=== PATIENT | male | born 1985 | race Caucasian/White ===

== ENCOUNTER 2016-08-15 17:30 | Emergency (ER) | payer SELFPAY ==
[~2016-08-15] VITALS: Wt 163.3 kg
[~2016-08-15 17:30] MED LIST: CIPROFLOXACIN500 MG PO; MOTRIN800 MG PO
[2016-08-15] MEDS ORDERED: ASPIR-TRIN325 MG PO (18:03)
[2016-08-15] MEDS ORDERED: AUGMENTIN 875875 MG PO (18:34)
== END 2016-08-15 19:26 | disposition home or self-care (01) ==
LOC: ED 17:30
DX: S61.431A Puncture wound without foreign body of right hand, initial encounter (principal); S61.432A Puncture wound without foreign body of left hand, initial encounter; Z79.82 Long term (current) use of aspirin; Z29.12 Encounter for prophylactic antivenin; W54.0XXA Bitten by dog, initial encounter; Y93.89 Activity, other specified; Y92.89 Other specified places as the place of occurrence of the external cause; Y99.9 Unspecified external cause status

== ENCOUNTER 2019-02-14 17:50 | Emergency (ER) | payer SELFPAY ==
[~2019-02-14] VITALS: Ht 190.5 cm; Wt 167.8 kg
[~2019-02-14 17:50] MED LIST changes: +ASPIR-TRIN325 MG PO; +AUGMENTIN 875875 MG PO
[2019-02-14] MEDS ORDERED: TESSALON PERLE100 M1 PO (19:40)
[2019-02-14] MEDS ORDERED: ZITHROMAX250 MG PO (19:40)
[2019-02-14] MEDS ORDERED: PREDNISONE50 MG PO (19:40)
== END 2019-02-14 19:43 | disposition home or self-care (01) ==
LOC: ED 17:50
DX: J40 Bronchitis, not specified as acute or chronic (principal); Z79.2 Long term (current) use of antibiotics; Z79.82 Long term (current) use of aspirin

== ENCOUNTER 2019-07-13 11:27 | Inpatient (IN) | payer SELFPAY ==
[~2019-07-13] VITALS: Ht 193 cm; Wt 217.9 kg
[2019-07-13] VITALS (8 sets, daily range): BP systolic 150–186; BP diastolic 82–121
[~2019-07-13 11:27] MED LIST changes: +PREDNISONE50 MG PO; +TESSALON PERLE100 M1 PO; +ZITHROMAX250 MG PO
[2019-07-13 13:07] LABS: BASO # 0.1 10*3/uL (0.0-0.1); BASO % 0.6 % (0.0-1.0); EOS # 0.1 10*3/uL (0.0-0.4); EOS % 0.9 % (1.0-4.0); HEMATOCRIT 49.4 % (42.0-52.0); LYMPH # 1.9 10*3/uL (1.3-4.4); LYMPH % 17.7 % (27.0-41.0); MEAN CELL VOLUME 82.2 fl (80.0-94.0); MEAN CORPUSCULAR HGB 26.6 pg (27.0-31.0); MEAN CORPUSCULAR HGB CONC 32.4 g/dl (33.0-37.0); MEAN PLATELET VOLUME 10.1 fl (9.6-12.3); MONO # 0.9 10*3/uL (0.1-1.0); MONO % 8.1 % (3.0-9.0); NEUT # 7.8 10*3/uL (2.3-7.9); NEUT % 72.3 % (47.0-73.0); PLATELET COUNT AUTOMATED 284 10*3/uL (130-400); RED BLOOD COUNT 6.01 10*6/uL (4.50-5.90); RED CELL DISTRI WIDTH 13.7 % (0-14.5); WHITE BLOOD COUNT 10.8 10*3/uL (4.8-10.8)
[2019-07-13 13:23] LABS: ALBUMIN 3.4 gm/dl (3.1-4.5); ALKALINE PHOSPHATASE 104 U/L (45-117); BUN 13 mg/dl (7-24); CHLORIDE 107 mmol/L (98-107); CREATININE 0.81 mg/dL (0.70-1.30); POTASSIUM 3.8 mmol/L (3.5-5.1); SGOT/AST 36 IU/L (3-35); SGPT/ALT 39 U/L (12-78); SODIUM 139 mmol/L (136-145); TOTAL PROTEIN 7.7 gm/dL (6.4-8.2)
[2019-07-13 13:26] LABS: TROPONIN I 0.113 ng/ml (<0.045)
--- NOTE | 2019-07-13 17:10 | NUR ---
A 34, admitted to , under the services of SCOTTY Garza DO with a diagnosis of HIGH BLOOD PRESSURE. Chief complaint is HIGH BLOOD PRESSURE. Patient arrived via ambulatory from ER. Monitor applied. Initial assessment completed. Vital signs taken and recorded. SCOTTY GARZA DO notified of admission to the unit. Orders received. See assessment for past medical history, medications and allergies. Patient and/or family oriented to unit. [facility] visitation policy reviewed. Clothing/patient valuable form completed. HERNANDO SALOMON
--- NOTE | 2019-07-13 19:47 | NUR ---
NOTIFIED DR. SINCLAIR PATIENTS BLOOD PRESSURE REMAINS HIGH DESPITE THE ONE TIME DOSE OF NORVASC GIVEN EARLIER. BLOOD PRESSURE STILL 180S/90S. DR. SINCLAIR TO PUT IN NEW ORDERS.
[2019-07-14] VITALS: BP 164/80; BP 180/97
[2019-07-14 06:22] LABS: BASO # 0.1 10*3/uL (0.0-0.1); BASO % 0.5 % (0.0-1.0); EOS # 0.2 10*3/uL (0.0-0.4); EOS % 1.6 % (1.0-4.0); HEMATOCRIT 46.4 % (42.0-52.0); LYMPH # 2.5 10*3/uL (1.3-4.4); LYMPH % 25.4 % (27.0-41.0); MEAN CELL VOLUME 82.4 fl (80.0-94.0); MEAN CORPUSCULAR HGB 26.5 pg (27.0-31.0); MEAN CORPUSCULAR HGB CONC 32.1 g/dl (33.0-37.0); MEAN PLATELET VOLUME 10.8 fl (9.6-12.3); MONO # 0.9 10*3/uL (0.1-1.0); MONO % 9.5 % (3.0-9.0); NEUT # 6.2 10*3/uL (2.3-7.9); NEUT % 62.8 % (47.0-73.0); PLATELET COUNT AUTOMATED 296 10*3/uL (130-400); RED BLOOD COUNT 5.63 10*6/uL (4.50-5.90); RED CELL DISTRI WIDTH 13.7 % (0-14.5); WHITE BLOOD COUNT 9.9 10*3/uL (4.8-10.8)
[2019-07-14 06:52] LABS: BUN 11 mg/dl (7-24); CHLORIDE 108 mmol/L (98-107); POTASSIUM 3.4 mmol/L (3.5-5.1); SODIUM 141 mmol/L (136-145)
[2019-07-14 07:04] LABS: CHOLESTEROL 195 mg/dL (<200); CREATININE 0.72 mg/dL (0.70-1.30); HDL CHOLESTEROL 37 mg/dl (40-60); LDL CHOLESTEROL 137 mg/dL (9-159); TRIGLYCERIDES 107 mg/dl (<150); VLDL CHOLESTEROL 21 mg/dL (6-40)
[2019-07-14 08:00] VITALS: BP 160/86
--- NOTE | 2019-07-14 08:17 | NUR ---
NOTIFIED DR KONG OF CRITICAL TROPONIN VALUE OF 0.124.
--- NOTE | 2019-07-14 09:00 | NUR ---
Aeroplane Pilot in to talk to patient. Patient states [facility] with [facility]. There are no steps in the home. Physician: porfirio narayanan Pharmacy: [facility] health services: [facility] Patient's level of ADLs: INDEPENDENT Patient has working utilities: all working DME: none Follow-up physician's appointment after d/c: will be made by hospitalist nurse director upon discharge Does patient want to access PORTAL?: no Discharge plan discussed with patient, he lives at home with his family, he is independent in adls and ambulation, works, drives, he states he will return home when medically stable, discuss with him filling out paper work to help with the cost of the hospital stay. he stated Augustina from [facility] had spoken to him this morning and given him the paperwork to fill out, patient denies any other needs at this time, case management will follow. ARUNA VILLALPANDO
--- NOTE | 2019-07-14 09:07 | NUR ---
BRENDA CALLED FROM [facility] TO CANCEL STRESS TEST D/T PT WEIGHT.
[2019-07-14 12:00] VITALS: BP 148/80
--- NOTE | 2019-07-14 12:44 | NUR ---
PT SITTING UP IN BED. RESPS EASY ON RA,SPO2 99%. VOICES NO NEEDS. DENIES CP/PRESSURE.AWITING LUNCH TO ARRIVE. STABLE AT THIS TIME. CALL LIGHT IN REACH.
[2019-07-14] MEDS ORDERED: AMLODIPINE BESYL5 MG PO (13:19)
[2019-07-14] MEDS ORDERED: ATORVASTATIN CA40 M1 PO (13:19)
[2019-07-14] MEDS ORDERED: ASPIRIN ADULT L81 M2 PO (13:19)
[2019-07-14] MEDS ORDERED: METOPROLOL SUCC50 M1 PO (13:19)
[2019-07-14] MEDS ORDERED: LISINOPRIL10 M1 PO (13:19)
[2019-07-14] MEDS ORDERED: VITAMIN D250 MC1 PO (13:25)
--- NOTE | 2019-07-14 14:25 | NUR ---
Discharge instructions reviewed with patient/family. Patient receptive and verbalizes understanding. Follow-up care arranged. Written instructions given to patient/family. ALECIA HAHN
--- NOTE | 2019-07-14 14:33 | NUR ---
Nutritional Support Services Note: Pt not available in room. Left patient a cardiac diet. Ht.6'4 Wt.480# Will follow up as needed. Sylvia Cody Rdn Ld
== END 2019-07-14 14:25 | disposition home or self-care (01) | DRG 305 ==
LOC: ED 11:27 → EDHOLD 16:15 → 4E 16:30
PROVIDERS: Nurse Practitioner Family; Student in an Organized Health Care Education/Training Program; ADMIT Internal Medicine
DX: I16.1 Hypertensive emergency (principal); E44.0 Moderate protein-calorie malnutrition; Z68.43 Body mass index [BMI] 50.0-59.9, adult; E66.01 Morbid (severe) obesity due to excess calories; E11.65 Type 2 diabetes mellitus with hyperglycemia; I10 Essential (primary) hypertension; R79.89 Other specified abnormal findings of blood chemistry; Z79.82 Long term (current) use of aspirin; Z82.49 Family history of ischemic heart disease and other diseases of the circulatory system; Z83.3 Family history of diabetes mellitus; Z79.899 Other long term (current) drug therapy